=== PATIENT | female | born 1980 | race Caucasian/White ===

== ENCOUNTER 2017-04-14 15:33 | Inpatient (IN) | payer OTHER ==
[2017-04-14 16:45] LABS: % IMMATURE GRANULYOCYTES 0.6 % (0.0-1.1); ADD DIFF? NO; ADD MORPH? NO; ADD SCAN? NO; ATYPICAL LYMPHOCYTE FLAG 0 (0-99); FRAGMENT RBC FLAG 0 (0-99); HEMATOCRIT 44.6 % (38.0-47.0); HEMOGLOBIN 15.7 g/dL (12.6-16.3); LEFT SHIFT FLG 0 (0-99); LIPEMIA HEMOLYSIS FLAG 90 (0-99); MEAN CELL HEMOGLOBIN CONCENTR. 35.2 g/dL (32.4-36.7); MEAN CELL VOLUME 93.7 fL (81.5-99.8); MEAN PLATELET VOLUME 10.4 fL (8.7-11.7); PLATELET CLUMPS FLAG 0 (0-99); PLATELET COUNT 176 10^3/uL (150-400); RED BLOOD CELL COUNT 4.76 10^6/uL (4.18-5.33); RED CELL DISTRIBUTION WIDTH 12.8 % (11.5-15.2)
[2017-04-14 16:58] LABS: ALANINE AMINOTRANSFERASE 41 IU/L (9-52); ASPARTATE AMINOTRANSFERASE 35 IU/L (14-46); BILIRUBIN,TOTAL 0.6 mg/dL (0.1-1.4); BILIRUBIN-CONJUGATED 0.3 mg/dL (0.0-0.5); BILIRUBIN-UNCONJUGATED 0.3 mg/dL (0.0-1.1); CREATININE 0.7 mg/dL (0.6-1.0); GLOMERULAR FILTRATION RATE > 60; LACTATE DEHYDROGENASE 588 IU/L (313-618); URIC ACID 5.1 mg/dL (2.5-6.8)
[2017-04-14] MEDS ORDERED: PROMETHAZINE HCL 25 MG TAB PO ONE (20:30)
[2017-04-15] MEDS ORDERED: fentaNYL 100 MCG/2 ML INJ ONE (07:14)
[2017-04-15] MEDS ORDERED: fentaNYL 2MCG/ML/BUP 0.1% RTU 100 ML BAG EP ONE ×2 (07:14→13:58)
[2017-04-15] MEDS ORDERED: BUPIVACAINE 0.25% 30 ML SDV ONE (07:15)
[2017-04-15] MEDS ORDERED: PHENYLEPHRINE HCL 100 MCG/ML SYR ONE (07:15)
[2017-04-15] MEDS ORDERED: LIDOCAINE 1% 300 MG/30 ML SDV ONE (08:48)
[2017-04-15] MEDS ORDERED: TERBUTALINE SULFATE 1 MG/ML VIAL ONE (08:48)
[2017-04-15] MEDS ORDERED: OLIVE OIL 118 ML BTL ONE (08:48)
[2017-04-15] MEDS ORDERED: AMMONIA AROMATIC 1 EACH AMP IH ONE (08:48)
[2017-04-15] MEDS ORDERED: OXYTOCIN/RINGERS LACTATE 30 UNIT/500 ML BAG IV ONE (08:49)
[2017-04-15] MEDS ORDERED: MISOPROSTOL 200 MCG TAB ONE (08:49)
[2017-04-15] MEDS ORDERED: OXYTOCIN 10 UNIT/ML VIAL ONE (08:49)
[2017-04-15] MEDS ORDERED: NS 100 ML BAG (MINI-BAG) IV ONE (09:19)
[2017-04-15] MEDS ORDERED: AMPICILLIN SODIUM 2 GM/10 ML VIAL ONE (09:19)
[2017-04-15] MEDS ORDERED: OXYTOCIN/LR *STANDARD DOSE PROTOCOL IV SCH (10:00)
[2017-04-15] MEDS ORDERED: AMPICILLIN SODIUM 2 GM in NS 100 ML IV ONE (10:00)
--- NOTE | 2017-04-15 12:14 | OBPROG ---
OBG Labor Progress Note Assessment/Plan: Assessment: cat 1 fhr arom clear fluid exam by RN 5/90/-2 cephalic remains comfortable with epidural great progress now in active labor Plan:expectant management of labor 04/15/17 12:11 Subjective: Feeling good after the epidural pain remains well controlled Objective: 04/14/17 16:25 04/14/17 16:25 Patient ABO/Rh A POSITIVE 04/14/17 16:00 Uric Acid 5.1 mg/dL (2.5-6.8) 04/14/17 16:25 Total Bilirubin 0.6 mg/dL (0.1-1.4) 04/14/17 16:25 Conjugated Bilirubin 0.3 mg/dL (0.0-0.5) 04/14/17 16:25 Unconjugated Bilirubin 0.3 mg/dL (0.0-1.1) 04/14/17 16:25 AST 35 IU/L (14-46) 04/14/17 16:25 ALT 41 IU/L (9-52) 04/14/17 16:25 Lactate Dehydrogenase 588 IU/L (313-618) 04/14/17 16:25 - SVE Dilation (cm): 5 Effacement (%): 90 Station: -2 - Physical Exam General Appearance: WD/WN, alert, no apparent distress Respiratory: chest non-tender, lungs clear, normal breath sounds Cardiac/Chest: regular rate, rhythm Abdomen: normal bowel sounds Extremities: normal range of motion, Saturnino's sign (negative bilaterally) DTR- Lower Extremities: Knee (R): 1+, Knee (L): 1+ (no clonus bilaterally) Skin: normal color, warm/dry Neuro/Psych: no motor/sensory deficits, alert, normal mood/affect, oriented x 3 Oxytocin Orders Assessment - Pre-Induction/Augmentation Assessment Gestational Age: 40 week(s) and 5 day(s) ICD10 Worksheet Patient Problems: Problems Problem Status Onset term labor Acute
[2017-04-15] MEDS: AMPICILLIN SODIUM 1 GM in NS 100 ML IV SCH ×2 (13:21→17:47)
--- NOTE | 2017-04-15 14:15 | OBPROG ---
OBG Labor Progress Note Assessment/Plan: Assessment: cat 1 fhr clear fluid exam by RN 7100/0 cephalic feeling some pain anesthesia called to trouble shoot epidural great progress now in active labor Plan:expectant management of labor 04/15/17 12:11 04/15/17 14:14 Objective: 04/14/17 16:25 04/14/17 16:25 Patient ABO/Rh A POSITIVE 04/14/17 16:00 Uric Acid 5.1 mg/dL (2.5-6.8) 04/14/17 16:25 Total Bilirubin 0.6 mg/dL (0.1-1.4) 04/14/17 16:25 Conjugated Bilirubin 0.3 mg/dL (0.0-0.5) 04/14/17 16:25 Unconjugated Bilirubin 0.3 mg/dL (0.0-1.1) 04/14/17 16:25 AST 35 IU/L (14-46) 04/14/17 16:25 ALT 41 IU/L (9-52) 04/14/17 16:25 Lactate Dehydrogenase 588 IU/L (313-618) 04/14/17 16:25 - SVE Dilation (cm): 7 Effacement (%): 100 Station: 0 Oxytocin Orders Assessment - Pre-Induction/Augmentation Assessment Gestational Age: 40 week(s) and 5 day(s) ICD10 Worksheet Patient Problems: Problems Problem Status Onset term labor Acute
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
[2017-04-15] MEDS ORDERED: ACETAMINOPHEN 500 MG TAB PO ONE ×2 (16:30→20:02)
--- NOTE | 2017-04-15 18:06 | OBPROG ---
OBG Labor Progress Note Assessment/Plan: Assessment: cat 1 fhr clear fluid continued from vagina + bloody show exam by RN 8/100/0 cephalic anterior lip some swelling comfortable with epidural small progress febrile tylenol given tachcardia now in active labor iupc placed to run pitocin more easily not adequete contractions noted Plan:expectant management of labor 04/15/17 12:11 04/15/17 14:14 04/15/17 18:04 Subjective: Comfortable with epidural. Discussed placement of IUPC to assist with pitocin dosage Objective: 04/14/17 16:25 04/14/17 16:25 Patient ABO/Rh A POSITIVE 04/14/17 16:00 Uric Acid 5.1 mg/dL (2.5-6.8) 04/14/17 16:25 Total Bilirubin 0.6 mg/dL (0.1-1.4) 04/14/17 16:25 Conjugated Bilirubin 0.3 mg/dL (0.0-0.5) 04/14/17 16:25 Unconjugated Bilirubin 0.3 mg/dL (0.0-1.1) 04/14/17 16:25 AST 35 IU/L (14-46) 04/14/17 16:25 ALT 41 IU/L (9-52) 04/14/17 16:25 Lactate Dehydrogenase 588 IU/L (313-618) 04/14/17 16:25 - SVE Dilation (cm): 8 Effacement (%): 100 Station: -1 Oxytocin Orders Assessment - Pre-Induction/Augmentation Assessment Gestational Age: 40 week(s) and 5 day(s) ICD10 Worksheet Patient Problems: Problems Problem Status Onset term labor Acute
[2017-04-15] MEDS ORDERED: GENTAMICIN SULFATE 120 MG in D5W 100 ML IV ONE (19:00)
[2017-04-15] MEDS ORDERED: GENTAMICIN 80 MG/NACL 100 ML IV SCH (19:30)
--- NOTE | 2017-04-15 19:35 | OBPROG ---
OBG Labor Progress Note Assessment/Plan: Assessment: cat 2 fhr clear fluid continued from vagina + bloody show exam 10/100/+1 cephalic anterior lip some swelling comfortable with epidural febrile again 38.7 will begin gentamycin/ chorio iupc fell out pitocin at 18mu will labor down 1-2 hours contractions q2-3 minutes apart consulted with dr. almeida on poc for temp and antibiotics Plan:expectant management of labor 04/15/17 12:11 04/15/17 14:14 04/15/17 18:04 04/15/17 19:32 Objective: 04/14/17 16:25 04/14/17 16:25 Patient ABO/Rh A POSITIVE 04/14/17 16:00 Uric Acid 5.1 mg/dL (2.5-6.8) 04/14/17 16:25 Total Bilirubin 0.6 mg/dL (0.1-1.4) 04/14/17 16:25 Conjugated Bilirubin 0.3 mg/dL (0.0-0.5) 04/14/17 16:25 Unconjugated Bilirubin 0.3 mg/dL (0.0-1.1) 04/14/17 16:25 AST 35 IU/L (14-46) 04/14/17 16:25 ALT 41 IU/L (9-52) 04/14/17 16:25 Lactate Dehydrogenase 588 IU/L (313-618) 04/14/17 16:25 - SVE Dilation (cm): 10 Effacement (%): 100 Station: +1 Oxytocin Orders Assessment - Pre-Induction/Augmentation Assessment Gestational Age: 40 week(s) and 5 day(s) ICD10 Worksheet Patient Problems: Problems Problem Status Onset term labor Acute
[2017-04-15] MEDS ORDERED: ACETAMINOPHEN 500 MG TAB ONE (20:04)
[2017-04-15] MEDS ORDERED: HYDROCODONE/APAP 5/325 TAB PO PRN (22:24)
[2017-04-15] MEDS ORDERED: PROMETHAZINE HCL 25 MG/ML INJ IVP PRN (22:24)
[2017-04-15] MEDS ORDERED: SIMETHICONE 80 MG TAB CHEW PO PRN (22:24)
[2017-04-15] MEDS ORDERED: ACETAMINOPHEN 325 MG TAB PO PRN (22:24)
--- NOTE | 2017-04-15 22:29 | OBDEL ---
Info Type: Vaginal GBS+: Yes Antibiotic Used for + GBS: Ampicillin Number of Antibiotic Doses Given: 3 Indications for Delivery: Postterm Favorable Cervix Vaginal Delivery - Labor and Delivery Onset of Contractions Date: 04/14/17 Onset of Contractions Time: 13:00 Onset of Contractions Type: Induced Rupture of Membranes Date: 04/15/17 Rupture of Membranes Time: 11:42 Rupture of Membranes Type: Spontaneous Amniotic Fluid Color: Clear, Meconium Stained Dilation Complete Date: 04/15/17 Dilation Complete Time: 19:17 Placenta Delivery Date: 04/15/17 Placenta Delivery Time: 21:27 Total Hours of Labor: 32 Non-surgical Procedures: IUPC Laceration: Other (Specify) (vaginal laceration 30.vicryl bilateral periurethrals repair of right) Repair: 3-0, 4-0, Vicryl Vaginal Sponge Count Correct: Yes Data G[facility]ens Delivery Date: 04/15/17 Delivery Time: 21:15 PEPE: 04/10/17 Gestational Age: 40 week(s) and 5 day(s) Sex of Infant: Male Score (1 Min): 8 Score (5 Min): 9 ICD10 Worksheet Patient Problems: Problems Problem Status Onset term labor Acute
--- NOTE | 2017-04-15 22:38 | OBGCSDC ---
General Delivery Information - General Info : 2 Para: 0 Abortions: 1 Labs: Patient ABO/Rh A POSITIVE 04/14/17 16:00 Hct 44.6 % (38.0-47.0) 04/14/17 16:25 Vaginal - Diagnosis Labor: Induced Rupture of Membranes Type: Spontaneous Amniotic Fluid Color: Clear, Meconium Stained Laceration: Other (Specify) (vaginal laceration 30.vicryl bilateral periurethrals repair of right) Repair: 3-0, 4-0, Vicryl - Operations/Procedures Non-surgical Procedures: IUPC - Hospital Course Antepartum: rh+. no antepartum difficultys Intrapartum: febrile amp and gent. 38.7 highest temp. Chorio baby to the nursery. Meconium at delivery. Clear fluid before delivery.repair of vaginal laceration with 3.0 vicryl. Bilaeral perurethrals repair of right periurethral. Epidural for pain relief. - Delivery Type: Vaginal Non-surgical Procedures: IUPC Data [facility] Delivery Date: 04/15/17 Delivery Time: 21:15 PEPE: 04/10/17 Gestational Age: 40 week(s) and 5 day(s) Sex of Infant: Male Score (1 Min): 8 Score (5 Min): 9
[2017-04-15] MEDS: IBUPROFEN 600 MG TAB PO PRN (22:52)
[2017-04-16] MEDS: AMPICILLIN SODIUM 1 GM in NS 100 ML IV SCH ×2 (00:31→02:20)
[2017-04-16] MEDS ORDERED: GENTAMICIN 80 MG/NACL 100 ML IV SCH (03:00)
[2017-04-16] MEDS: IBUPROFEN 600 MG TAB PO PRN ×4 (04:18→22:43)
[2017-04-16] MEDS ORDERED: OXYTOCIN/RINGERS LACTATE 20 UNIT/1,000 ML BAG IV ONE (07:19)
[2017-04-16] MEDS ORDERED: LR 1,000 ML IV PRN (08:16)
[2017-04-16] MEDS ORDERED: EPSOM SALT 454 GM TP PRN (08:16)
[2017-04-16] MEDS ORDERED: OXYTOCIN/RINGERS LACTATE 1,000 ML IV SCH (08:30)
[2017-04-16] MEDS ORDERED: MISOPROSTOL 200 MCG TAB ONE (08:52)
--- NOTE | 2017-04-16 09:20 | SOAPPROG ---
SOAP Progress Note Assessment/Plan: Assessment: ppd# 1 s/p pph - pitocin and cyototec - bleeding stable right now breast feeding Plan: cytotec continued close observation if bleeding persists - or for d and c 04/16/17 09:15 Subjective: patient is doing great overall. pain is well controlled. initially had unremarkable post course. at 7 am had large gush of bright red blood ( 350) trailing membranes noted at vagina. membranes removed. has had several small gushes since then. pitocin was started. i came to bedside - us done. quetionable clot vs rpoc at fundus. more consistent with clot. fundal pressure expressed large clot. area at fundus smaller but still present. cytotec placed. discussed possible d and c if bleeding persists. fundus firm. bleeding minimal right now. working on breast feeding. Objective: Vital Signs Temp Pulse Resp BP Pulse Ox 36.4 C 68 18 115/71 95 04/16/17 00:11 04/16/17 00:11 04/16/17 00:11 04/16/17 00:11 04/16/17 00:11 Laboratory Results 04/14/17 16:25 04/14/17 16:25 04/15/17 04/16/17 04/17/17 05:59 05:59 05:59 Intake Total 3000 Output Total 400 Balance 2600 Physical Exam - Physical Exam General Appearance: WD/WN, alert, no apparent distress Respiratory: chest non-tender, lungs clear, normal breath sounds Cardiac/Chest: normal peripheral pulses, regular rate, rhythm Abdomen: normal bowel sounds, non-tender, soft, other (fundus firm ) Skin: normal color, warm/dry Extremities: normal range of motion, non-tender, normal inspection, normal capillary refill Neuro/Psych: no motor/sensory deficits, alert, normal mood/affect, oriented x 3 ICD10 Worksheet Patient Problems: Problems Problem Status Onset term labor Acute
[2017-04-16] MEDS: DOCUSATE SODIUM 100 MG CAP PO PRN ×2 (10:36→22:43)
[2017-04-16] MEDS ORDERED: MISOPROSTOL 200 MCG TAB PR SCH (15:00)
--- NOTE | 2017-04-16 17:36 | SOAPPROG ---
SOAP Progress Note Assessment/Plan: Assessment: ppd# 1 s/p pph - pitocin and cyototec - bleeding stable right now breast feeding Plan: cytotec continued close observation 04/16/17 17:35 Subjective: patient is doing great. hasnt had and further blood clots. feeling well. working on breast feeding. denies headache and changes in vision. Objective: Vital Signs Temp Pulse Resp BP Pulse Ox 36.7 C 73 18 113/72 96 04/16/17 08:30 04/16/17 08:30 04/16/17 08:30 04/16/17 08:30 04/16/17 07:30 Laboratory Results 04/14/17 16:25 04/14/17 16:25 04/15/17 04/16/17 04/17/17 05:59 05:59 05:59 Intake Total 3000 1000 Output Total 400 800 Balance 2600 200 Physical Exam - Physical Exam General Appearance: WD/WN, alert, no apparent distress Respiratory: chest non-tender, lungs clear, normal breath sounds Cardiac/Chest: normal peripheral pulses, regular rate, rhythm Abdomen: normal bowel sounds, non-tender, soft, other (fundus firm and non tender) Skin: normal color, warm/dry Extremities: normal range of motion, non-tender, normal inspection, normal capillary refill Neuro/Psych: no motor/sensory deficits, alert, normal mood/affect, oriented x 3 ICD10 Worksheet Patient Problems: Problems Problem Status Onset term labor Acute
[2017-04-17] MEDS: IBUPROFEN 600 MG TAB PO PRN ×3 (05:11→17:34)
--- NOTE | 2017-04-17 08:09 | OBPP ---
Progress Note Assessment/Plan: Assessment: 1) s/p PPD # 1.5 - pt is stable 2) s/p PPH 3) Chorio - s/p abx Plan: Continue routine pp care Encourage ambulation Pt is afebrile at this time, cont to monitor HCT this am 40.7 Will plan for d/c home in am 6/8 04/17/17 08:05 Subjective: Pt seen and examined. Doing well, no complaints. Some cramping. Pt is OOB, diana regular diet, voiding and passing flatus. No BM yet. Moderate lochia, no further clots. Baby boy is in NICU. She is pumping and BF - so far so good. Objective: 04/17/17 05:16 04/14/17 16:25 Patient ABO/Rh A POSITIVE 04/14/17 16:00 Uric Acid 5.1 mg/dL (2.5-6.8) 04/14/17 16:25 Total Bilirubin 0.6 mg/dL (0.1-1.4) 04/14/17 16:25 Conjugated Bilirubin 0.3 mg/dL (0.0-0.5) 04/14/17 16:25 Unconjugated Bilirubin 0.3 mg/dL (0.0-1.1) 04/14/17 16:25 AST 35 IU/L (14-46) 04/14/17 16:25 ALT 41 IU/L (9-52) 04/14/17 16:25 Lactate Dehydrogenase 588 IU/L (313-618) 04/14/17 16:25 Temp Pulse Resp BP Pulse Ox 36.9 C 75 14 105/61 95 04/17/17 00:04 04/17/17 00:04 04/17/17 00:04 04/17/17 00:04 04/17/17 00:04 Uterine Position/Fundal Height: Umbilicus -2 Uterine Tone: Firm Physical Exam - Physical Exam General Appearance: WD/WN, alert, no apparent distress Respiratory: lungs clear, normal breath sounds Cardiac/Chest: regular rate, rhythm Abdomen: normal bowel sounds, non-tender, soft, flatus (+) Extremities: non-tender, normal inspection Neuro/Psych: alert, normal mood/affect, oriented x 3
[2017-04-17] MEDS: DOCUSATE SODIUM 100 MG CAP PO PRN (11:08)
[2017-04-17 23:27] VITALS: RESP 18
[2017-04-18] MEDS: IBUPROFEN 600 MG TAB PO PRN ×3 (01:55→13:52)
[2017-04-18] MEDS: DOCUSATE SODIUM 100 MG CAP PO PRN (07:52)
[2017-04-18 08:07] VITALS: TEMP 98.2; O2SAT 96
[2017-04-18 09:04] VITALS: BP 130/74; PULSE 81
--- NOTE | 2017-04-18 11:32 | OBGCSDC ---
General Delivery Information - General Info : 2 Para: 1 Delivery Physician/CNM: Niharika Harris Labs: Patient ABO/Rh A POSITIVE 04/14/17 16:00 Hct 40.7 % (38.0-47.0) 04/17/17 05:16 Vaginal - Diagnosis Labor: Induced Rupture of Membranes Type: Spontaneous Amniotic Fluid Color: Clear, Meconium Stained Laceration: Other (Specify) (vaginal laceration 30.vicryl bilateral periurethrals repair of right) Repair: 3-0, 4-0, Vicryl - Operations/Procedures Non-surgical Procedures: IUPC L&D Analgesia/Anesthesia Type: Epidural - Delivery Non-surgical Procedures: IUPC L&D Analgesia/Anesthesia Type: Epidural Data G[facility] Delivery Date: 04/15/17 Delivery Time: 21:15 PEPE: 04/09/17 Gestational Age: 41 week(s) and 2 day(s) Sex of Infant: Male Mona Weight (gm): 3738 g Score (1 Min): 8 Score (5 Min): 9 Discharge Information - Discharge Information Discharge Medications: Ibuprofen, Vitamins Condition: Good Instruction/Follow Up: Six Weeks (and 4 wks with therapist) Discharge Physician/CNM: Sarah Enrique
== END 2017-04-18 15:00 | disposition home or self-care (01) | DRG 775 ==
LOC: OBSVTOIN 15:33 → FLD 15:33 → FOB 04-15 23:21
PROVIDERS: ADMIT Obstetrics & Gynecology; ATTEND Obstetrics & Gynecology
PROC: 3E033VJ Introduction of Other Hormone into Peripheral Vein, Percutaneous Approach (ICD-10-PCS; principal; 2017-04-15)
PROC: 10E0XZZ Delivery of Products of Conception, External Approach (ICD-10-PCS; principal; 2017-04-15)
PROC: 4A1J7BZ Monitoring of Products of Conception, Nervous Pressure, Via Natural or Artificial Opening (ICD-10-PCS; principal; 2017-04-15)
PROC: 0UQM0ZZ Repair Vulva, Open Approach (ICD-10-PCS; principal; 2017-04-15)
DX: O48.0 Post-term pregnancy (principal); O71.82 Other specified trauma to perineum and vulva; O09.523 Supervision of elderly multigravida, third trimester; Z3A.40 40 weeks gestation of pregnancy; Z37.0 Single live birth
CPT/HCPCS: J0290; J2370; J2550; J2590; J3010; J3105

== ENCOUNTER → 2017-04-23 | Outpatient (CLI) | payer OTHER | LOC: FLACT 12:58 | PROVIDERS: ATTEND Pediatrics | DX: Z39.1 Encounter for care and examination of lactating mother (principal); R63.3 Feeding difficulties | CPT/HCPCS: G0463 ==

== ENCOUNTER → 2017-05-02 | Outpatient (CLI) | payer OTHER | LOC: FLACT 10:07 | PROVIDERS: ATTEND Advanced Practice Midwife | DX: Z39.1 Encounter for care and examination of lactating mother (principal); R63.3 Feeding difficulties | CPT/HCPCS: G0463 ==